=== PATIENT | male | born 1995 | race Caucasian/White ===

== ENCOUNTER 2025-06-13 09:20 | Emergency (ER) | payer BC, MEDICAID, OTHER ==
[2025-06-13] MEDS ORDERED: Sodium Chloride 0.9% 10 ML Syringe FLUSH PRN (09:24)
[2025-06-13] MEDS: Ondansetron 4 MG/2 ML SDV IVPUSH ONE (09:29)
[2025-06-13 09:33] LABS: BASOPHILS ABSOLUTE AUTO 0.09 K/uL (0.00-0.20); BASOPHILS PERCENT AUTO 0.9 % (0.0-2.0); EOSINOPHILS ABSOLUTE AUTO 0.11 K/uL (0.00-0.50); EOSINOPHILS PERCENT AUTO 1.1 % (0.0-5.0); IMMATURE GRAN ABSOLUTE AUTO 0.02 10^3/uL (0.00-0.04); IMMATURE GRAN PERCENT AUTO 0.2 % (0.0-0.4); LYMPHOCYTES ABSOLUTE AUTO 4.03 K/uL (0.50-3.50); LYMPHOCYTES PERCENT AUTO 39.5 % (10.0-50.0); MONOCYTES ABSOLUTE AUTO 1.08 K/uL (0.00-1.00); MONOCYTES PERCENT AUTO 10.6 % (2.0-14.0); NEUTROPHILS ABSOLUTE AUTO 4.88 K/uL (1.40-7.00); NEUTROPHILS PERCENT AUTO 47.7 % (45.0-80.0); PLATELET COUNT,PLT 384 K/uL (150-350); RED BLOOD CELL COUNT 5.21 M/uL (4.33-5.41); RED CELL DISTRIBUTION WIDTH 11.8 % (11.2-14.1); WHITE BLOOD CELL COUNT,WBC 10.2 K/uL (4.0-10.2)
[2025-06-13] MEDS: Ketorolac 15 MG/ML SDV IVPUSH ONE (09:37)
[2025-06-13 09:53] LABS: ALANINE AMINOTRANSFERASE,ALT 37.0 U/L (12-78); ASPARTATE AMNIOTRANSFERASE,AST 19.0 U/L (15-37); BILIRUBIN TOTAL 0.6 mg/dL (0.2-1.0); BLOOD UREA NITROGEN,BUN 14.0 mg/dL (7-18); CARBON DIOXIDE,CO2 27.3 mmol/L (21.0-32.0); CHLORIDE,CL 108.0 mmol/L (98-107); CREATININE 1.05 mg/dL (0.51-1.17); EST CRCL DRUG DOSING (CG) 119.43 mL/min; GLUCOSE RANDOM 103.0 mg/dL (70-99); POTASSIUM,K 4.3 mmol/L (3.5-5.1); PROTEIN TOTAL,TP 7.4 g/dL (6.4-8.2); SODIUM,NA 143.0 mmol/L (136-145)
[2025-06-13] MEDS: Lactated Ringers 1,000 ML IV SCH (10:03)
[2025-06-13 10:13] LABS: ESTIMATED GFR 100.0 mL/min (>=60)
[2025-06-13 11:39] LABS: APPEARANCE,URINE SLIGHTLY CLOUDY; GLUCOSE,URINE NEGATIVE (NEGATIVE); OCCULT BLOOD,URINE LARGE (NEGATIVE)
[2025-06-13 11:49] LABS: SQUAMOUS EPITHELIAL CELLS,UR OCCASIONAL /HPF (NOT SEEN)
== END 2025-06-13 12:42 | disposition home or self-care (01) ==
LOC: LL.ED 09:20
DX: R10.A0 Flank pain, unspecified side (principal); N50.812 Left testicular pain; F17.200 Nicotine dependence, unspecified, uncomplicated; Z90.49 Acquired absence of other specified parts of digestive tract; Z79.899 Other long term (current) drug therapy
CPT/HCPCS: 36415; 74176; 80053; 81001; 83735; 85025; 86140; 96361; 96374; 96375; 99284; J1171; J1885; J2405; J7120